=== PATIENT | male | born 1940 | race Caucasian/White ===

== ENCOUNTER 2018-09-11 17:50 | Emergency (ER) | payer MEDICARE, OTHER ==
[~2018-09-11] VITALS: Ht 180.3 cm; Wt 81.6 kg
--- OUTSIDE RECORDS SUMMARY | 2018-09-11 17:53 | XMS REPORT ---
Author Author [facility] Address Unknown Phone Unavailable Care Team Providers Care Window Trimmer Name Role Phone Unavailable Unavailable Payers Payer Name Policy Type Policy Number Effective Date Expiration Date Problems This patient has no known problems. Allergies, Adverse Reactions, Alerts Allergy Name Allergy Type Status Severity Reaction(s) Onset Date Inactive Date Treating Clinician Comments hydrocodone DA Active [place] 2012-02-16 00:00:00 Medications This patient has no known medications.
[2018-09-11] MEDS ORDERED: TETANUS/DIPHTHERIA TOX ADULT 0.5 ML SYR IM ONE (18:15)
[2018-09-11] MEDS ORDERED: TRAMADOL HCL 50 MG TAB PO NR (18:15)
[2018-09-11] MEDS ORDERED: NEOMYCIN/POLYMYX/BACITR OINT 0.9 GM PKT ONE (18:19)
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
[2018-09-11 19:01] VITALS: BP 119/61
== END 2018-09-11 19:05 | disposition home or self-care (01) ==
LOC: ER 17:50
DX: S50.11XA Contusion of right forearm, initial encounter (principal); S50.811A Abrasion of right forearm, initial encounter; V43.52XA Car driver injured in collision with other type car in traffic accident, initial encounter; E03.9 Hypothyroidism, unspecified; Z95.5 Presence of coronary angioplasty implant and graft; I25.2 Old myocardial infarction
CPT/HCPCS: 99283

== ENCOUNTER 2022-01-07 09:16 | Emergency (ER) | payer MEDICARE ==
[~2022-01-07] VITALS: Ht 180.3 cm; Wt 81.6 kg
[2022-01-07] MEDS ORDERED: KETOROLAC TROMETHAMINE 30 MG/ML VIAL IM STA (10:40)
== END 2022-01-07 11:23 | disposition home or self-care (01) ==
LOC: ER 09:28
DX: M25.561 Pain in right knee (principal); M79.661 Pain in right lower leg; E03.9 Hypothyroidism, unspecified; I25.2 Old myocardial infarction; Z95.5 Presence of coronary angioplasty implant and graft
CPT/HCPCS: 93971; 99283; J1885

== ENCOUNTER 2022-08-11 21:24 | Observation (INO) | payer MEDICARE ==
[~2022-08-11] VITALS: Ht 177.8 cm; Wt 81.6 kg
[2022-08-11] MEDS ORDERED: DIGOXIN INJ 0.25 MG/ML 2 ML AMP IV STA (21:32)
[2022-08-11] MEDS ORDERED: ONDANSETRON HCL INJ 2MG/ML 2ML 2 MG/ML VIAL IV PRN (21:45)
[2022-08-11] MEDS ORDERED: DILTIAZEM HCL 5 MG/ML 5 ML VIAL IV STA ×2 (21:47→21:48)
[2022-08-11] MEDS ORDERED: METOPROLOL TARTRATE INJ 1 MG/ML VIAL IV STA (21:48)
[2022-08-11 21:52] LABS: BASOPHILS % 0.3 % (0.0-1.0); HEMATOCRIT 44.5 % (38.2-49.6); HEMOGLOBIN 14.7 g/dL (14.0-18.0); LYMPHOCYTES # (AUTO) 0.9 (1.0-3.2); LYMPHOCYTES % 11.5 % (18.0-39.1); MEAN CORPUSCULAR HEMOGLOBIN 28.4 pg (28-32); MEAN CORPUSCULAR VOLUME 85.9 fL (81-99); MONOCYTES # (AUTO) 0.3 (0.2-0.8); MONOCYTES % 4.2 % (4.4-11.3); NEUTROPHILS # (AUTO) 6.6 (2.1-6.9); NEUTROPHILS % 83.4 % (38.7-80.0); PLATELET COUNT 228 x10e3/uL (140-360); RED BLOOD COUNT 5.18 x10e6/uL (4.3-5.7); RED CELL DISTRIBUTION WIDTH 13.2 % (11.7-14.4)
[2022-08-11 22:05] LABS: ALBUMIN 3.9 g/dL (3.5-5.0); ALBUMIN/GLOBULIN RATIO 1.2 (0.8-2.0); ANION GAP 14.9 mmol/L (8-16); CALCIUM 9.4 mg/dL (8.4-10.2); CREATININE, SERUM 1.27 mg/dL (0.72-1.25); POTASSIUM 3.9 mmol/L (3.5-5.1)
[2022-08-11 22:19] LABS: CREATINE KINASE MB 3.3 ng/mL (0-5.0)
[2022-08-11 22:46] VITALS: PULSE 75; RESP 16; O2SAT 98
[2022-08-11 23:00] VITALS: BP 126/61; PULSE 77; RESP 17; TEMP 97.5; O2SAT 100
[2022-08-11] MEDS: SODIUM CHLORIDE 0.9% 1000ML 1,000 ML IV SCH (23:46)
[2022-08-12 00:25] VITALS: BP 126/61; PULSE 77; RESP 17; TEMP 97.5; O2SAT 100
[2022-08-12 04:45] VITALS: BP 120/66; PULSE 84; RESP 17; TEMP 97.7; O2SAT 100
[2022-08-12 05:01] LABS: BASOPHILS % 0.2 % (0.0-1.0); EOSINOPHILS % 0.1 % (0.0-6.0); HEMATOCRIT 38.1 % (38.2-49.6); HEMOGLOBIN 12.4 g/dL (14.0-18.0); LYMPHOCYTES # (AUTO) 1.4 (1.0-3.2); LYMPHOCYTES % 15.7 % (18.0-39.1); MEAN CORPUSCULAR HEMOGLOBIN 28.2 pg (28-32); MEAN CORPUSCULAR HGB CONC 32.5 g/dL (31-35); MEAN CORPUSCULAR VOLUME 86.8 fL (81-99); MONOCYTES # (AUTO) 0.8 (0.2-0.8); MONOCYTES % 8.3 % (4.4-11.3); NEUTROPHILS # (AUTO) 6.9 (2.1-6.9); NEUTROPHILS % 75.3 % (38.7-80.0); PLATELET COUNT 196 x10e3/uL (140-360); RED BLOOD COUNT 4.39 x10e6/uL (4.3-5.7)
[2022-08-12] MEDS ORDERED: LEVOTHYROXINE75 MCG PO (05:17)
[2022-08-12] MEDS ORDERED: PREDNISONE20 MG PO (05:17)
[2022-08-12] MEDS ORDERED: CLOPIDOGREL75 MG PO (05:17)
[2022-08-12] MEDS ORDERED: ASPIRIN325 MG PO (05:17)
[2022-08-12 05:21] LABS: ALBUMIN/GLOBULIN RATIO 1.2 (0.8-2.0); ANION GAP 9.6 mmol/L (8-16); CALCIUM 8.5 mg/dL (8.4-10.2); CREATININE, SERUM 0.95 mg/dL (0.72-1.25); POTASSIUM 3.6 mmol/L (3.5-5.1)
[2022-08-12 05:53] LABS: CREATINE KINASE MB 2.4 ng/mL (0-5.0)
[2022-08-12] MEDS: SODIUM CHLORIDE 0.9% 1000ML 1,000 ML IV SCH (06:14)
[2022-08-12 08:21] VITALS: BP 131/94; PULSE 81; RESP 19; TEMP 97.8; O2SAT 100
[2022-08-12] MEDS ORDERED: FLOMAX0.4 MG PO (08:32)
[2022-08-12] MEDS ORDERED: EZETIMIBE10 MG PO (08:32)
[2022-08-12 08:35] VITALS: BP 131/94; PULSE 81; RESP 19; TEMP 97.8; O2SAT 100
[2022-08-12] MEDS ORDERED: VITAMIN C1000 MG PO (08:37)
[2022-08-12] MEDS ORDERED: [UNRECOGNIZED DRUG - OTHER] PO (08:37)
[2022-08-12] MEDS ORDERED: MULTIVITAMIN PO (08:37)
[2022-08-12] MEDS ORDERED: COQ1050 MG PO (08:37)
[2022-08-12] MEDS ORDERED: vitamin d3 PO (08:37)
[2022-08-12] MEDS ORDERED: VITAMIN B COMP1 EAC1 PO (08:37)
[2022-08-12] MEDS ORDERED: LYSINE1000 MG PO (08:37)
[2022-08-12] MEDS ORDERED: APIXABAN 5 MG TABLET PO SCH (09:00)
[2022-08-12] MEDS ORDERED: METOPROLOL TARTRATE 25 MG TAB PO SCH (09:00)
[2022-08-12] MEDS ORDERED: CLOPIDOGREL BISULFATE 75 MG TAB PO SCH (09:00)
[2022-08-12] MEDS ORDERED: LEVOTHYROXINE SODIUM 75 MCG TAB PO SCH (09:00)
[2022-08-12 09:12] LABS: THYROID STIMULATING HORMONE 0.159 uIU/mL (0.350-4.940)
[2022-08-12 10:30] VITALS: PULSE 67; RESP 16; O2SAT 99
[2022-08-12] MEDS ORDERED: METOPROLOL SUCC25 MG PO (10:36)
[2022-08-12] MEDS ORDERED: ELIQUIS5 MG PO (10:37)
[2022-08-12 10:56] LABS: CHOL/HDL RATIO 3.9 (3.9-4.7)
[2022-08-12] MEDS ORDERED: AMIODARONE HCL 200 MG TAB PO SCH (12:00)
[2022-08-12] MEDS ORDERED: TAMSULOSIN HCL 0.4 MG CAP PO SCH (17:00)
[2022-08-13] MEDS ORDERED: LEVOTHYROXINE SODIUM 25 MCG TABLET PO SCH (06:00)
[2022-08-13] MEDS ORDERED: METOPROLOL SUCCINATE 25 MG TAB XL PO SCH (09:00)
== END 2022-08-12 11:05 | disposition home or self-care (01) ==
LOC: ER 21:29 → INTOOBSV 21:38 → ERHOLD 21:38 → MED/SURG 23:01
PROVIDERS: ADMIT Internal Medicine; ATTEND Internal Medicine
DX: I48.0 Paroxysmal atrial fibrillation (principal); I48.20 Chronic atrial fibrillation, unspecified; I25.10 Atherosclerotic heart disease of native coronary artery without angina pectoris; E78.00 Pure hypercholesterolemia, unspecified; I10 Essential (primary) hypertension; N40.0 Benign prostatic hyperplasia without lower urinary tract symptoms; E03.9 Hypothyroidism, unspecified; Z88.6 Allergy status to analgesic agent; I25.2 Old myocardial infarction; Z20.822 Contact with and (suspected) exposure to COVID-19; Z95.5 Presence of coronary angioplasty implant and graft
CPT/HCPCS: 36415 ×2; 71045; 80053 ×2; 80061; 82550 ×2; 82553 ×2; 83036; 83690; 83735; 83880; 84443; 84484 ×2; 85025 ×2; 85379; 93005; 93306; 94799 ×2; 99284; G0378 ×2; J1160; J7030 ×2; U0002

== ENCOUNTER 2023-01-22 10:07 | Observation (INO) | payer MEDICARE ==
[~2023-01-22] VITALS: Ht 177.8 cm; Wt 81.6 kg
[~2023-01-22 10:07] MED LIST: ASPIRIN325 MG PO; CLOPIDOGREL75 MG PO; COQ1050 MG PO; ELIQUIS5 MG PO; EZETIMIBE10 MG PO; FLOMAX0.4 MG PO; LEVOTHYROXINE75 MCG PO; LYSINE1000 MG PO; METOPROLOL SUCC25 MG PO; MULTIVITAMIN PO; PREDNISONE20 MG PO; VITAMIN B COMP1 EAC1 PO; VITAMIN C1000 MG PO; [UNRECOGNIZED DRUG - OTHER] PO; vitamin d3 PO
[2023-01-22 10:32] LABS: BASOPHILS % 0.5 % (0.0-1.0); EOSINOPHILS # (AUTO) 0.1 (0.0-0.4); EOSINOPHILS % 0.9 % (0.0-6.0); HEMATOCRIT 38.2 % (38.2-49.6); HEMOGLOBIN 12.9 g/dL (14.0-18.0); LYMPHOCYTES # (AUTO) 1.3 (1.0-3.2); LYMPHOCYTES % 16.1 % (18.0-39.1); MEAN CORPUSCULAR HGB CONC 33.8 g/dL (31-35); MONOCYTES # (AUTO) 0.6 (0.2-0.8); MONOCYTES % 7.3 % (4.4-11.3); NEUTROPHILS # (AUTO) 5.9 (2.1-6.9); NEUTROPHILS % 74.8 % (38.7-80.0); PLATELET COUNT 218 x10e3/uL (140-360); RED CELL DISTRIBUTION WIDTH 12.9 % (11.7-14.4); WHITE BLOOD COUNT 7.82 x10e3/uL (4.8-10.8)
[2023-01-22] MEDS ORDERED: DONNATAL/LIDOCAINE/MAALOX 30 ML SUSP PO STA (11:02)
[2023-01-22 11:05] LABS: ALBUMIN 3.6 g/dL (3.5-5.0); ALBUMIN/GLOBULIN RATIO 1.4 (0.8-2.0); ANION GAP 11.7 mmol/L (8-16); CALCIUM 8.6 mg/dL (8.4-10.2); CREATININE, SERUM 1.12 mg/dL (0.72-1.25); POTASSIUM 3.7 mmol/L (3.5-5.1)
[2023-01-22] MEDS ORDERED: DICYCLOMINE HCL 20 MG/2 ML VIAL IM ONE (11:15)
[2023-01-22] MEDS ORDERED: ASPIRIN 325 MG TAB PO ONE (13:00)
[2023-01-22] MEDS ORDERED: ASPIRIN 81 MG CHEW TAB PO ONE (13:00)
[2023-01-22 14:16] VITALS: PULSE 62; RESP 18; O2SAT 98
[2023-01-22 15:52] VITALS: BP 155/80; PULSE 94; RESP 15; TEMP 97.8; O2SAT 100
[2023-01-22] MEDS ORDERED: AMIODARONE HCL200 MG PO (16:15)
[2023-01-22 20:00] VITALS: BP_SYST 149; BP_SYST 155; BP_DIAS 78; BP_DIAS 80; PULSE 94; PULSE 97; RESP 15; RESP 18; TEMP 97.8; TEMP 98.3; O2SAT 100
[2023-01-23] VITALS (7 sets, daily range): BP systolic 115–158; BP diastolic 54–74; PULSE 65–90; RESP 18; TEMP 97.8–98.5; O2SAT 96–100
[2023-01-23 05:22] LABS: BASOPHILS % 0.4 % (0.0-1.0); EOSINOPHILS # (AUTO) 0.1 (0.0-0.4); EOSINOPHILS % 0.6 % (0.0-6.0); HEMATOCRIT 39.1 % (38.2-49.6); HEMOGLOBIN 12.9 g/dL (14.0-18.0); MEAN CORPUSCULAR HEMOGLOBIN 28.1 pg (28-32); MEAN CORPUSCULAR VOLUME 85.2 fL (81-99); MONOCYTES # (AUTO) 0.9 (0.2-0.8); MONOCYTES % 10.8 % (4.4-11.3); NEUTROPHILS # (AUTO) 5.5 (2.1-6.9); NEUTROPHILS % 64.8 % (38.7-80.0); PLATELET COUNT 200 x10e3/uL (140-360); RED BLOOD COUNT 4.59 x10e6/uL (4.3-5.7); RED CELL DISTRIBUTION WIDTH 12.9 % (11.7-14.4); WHITE BLOOD COUNT 8.49 x10e3/uL (4.8-10.8)
[2023-01-23] MEDS: LEVOTHYROXINE SODIUM 50 MCG TAB PO SCH (06:00)
[2023-01-23 06:54] LABS: ALBUMIN 3.2 g/dL (3.5-5.0); ALBUMIN/GLOBULIN RATIO 1.1 (0.8-2.0); ANION GAP 11.1 mmol/L (8-16); CALCIUM 8.8 mg/dL (8.4-10.2); CREATININE, SERUM 1.17 mg/dL (0.72-1.25); POTASSIUM 4.1 mmol/L (3.5-5.1)
[2023-01-23] MEDS: PANTOPRAZOLE SOD 40 MG TABEC PO SCH ×2 (07:30→09:12)
[2023-01-23] MEDS: AMIODARONE HCL 200 MG TAB PO SCH ×2 (08:24→09:13)
[2023-01-23] MEDS: TAMSULOSIN HCL 0.4 MG CAP PO SCH ×2 (08:24→09:13)
[2023-01-23] MEDS: EZETIMIBE 10 MG TAB PO SCH ×2 (08:24→09:13)
[2023-01-23] MEDS: METOPROLOL SUCCINATE 25 MG TAB XL PO SCH (10:45)
[2023-01-23] MEDS ORDERED: HYDRALAZINE HCL 20 MG/ML VIAL IV PRN (21:00)
[2023-01-23] MEDS ORDERED: ONDANSETRON HCL INJ 2MG/ML 2ML 2 MG/ML VIAL IV PRN (21:00)
[2023-01-24 01:03] VITALS: BP 134/58; PULSE 84; RESP 17; TEMP 98; O2SAT 100
[2023-01-24 04:00] VITALS: BP 134/71; PULSE 70; RESP 17; TEMP 98; O2SAT 98
[2023-01-24] MEDS: LEVOTHYROXINE SODIUM 50 MCG TAB PO SCH (05:58)
[2023-01-24 06:26] LABS: ANION GAP 11.5 mmol/L (8-16); CALCIUM 8.9 mg/dL (8.4-10.2); CREATININE, SERUM 1.14 mg/dL (0.72-1.25); PHOSPHORUS 3.1 MG/DL (2.3-4.7); POTASSIUM 3.5 mmol/L (3.5-5.1)
[2023-01-24 06:40] LABS: FREE T4 (FREE THYROXINE) 1.04 ng/dL (0.8-1.8); THYROID STIMULATING HORMONE 1.66 uIU/mL (0.350-4.940)
[2023-01-24 07:32] VITALS: PULSE 70; RESP 18; O2SAT 97
[2023-01-24] MEDS: METOPROLOL SUCCINATE 25 MG TAB XL PO SCH (08:48)
[2023-01-24] MEDS: PANTOPRAZOLE SOD 40 MG TABEC PO SCH (08:49)
[2023-01-24] MEDS: TAMSULOSIN HCL 0.4 MG CAP PO SCH (08:49)
[2023-01-24] MEDS: EZETIMIBE 10 MG TAB PO SCH (08:49)
[2023-01-24] MEDS: AMIODARONE HCL 200 MG TAB PO SCH (08:49)
[2023-01-24 09:13] VITALS: BP 122/71; PULSE 94; RESP 20; TEMP 97.5; O2SAT 98
[2023-01-24] MEDS ORDERED: D5.45%NS/KCL 20MEQ 1,000 ML IV SCH (10:00)
[2023-01-24 12:36] VITALS: BP 108/59; PULSE 72; RESP 16; TEMP 97.9; O2SAT 97
[2023-01-24] MEDS ORDERED: ONDANSETRON ODT4 MG PO (16:32)
[2023-01-24] MEDS ORDERED: ULTRAM 50MG50 MG PO (16:32)
[2023-01-24 16:46] VITALS: BP 109/81; PULSE 71; RESP 15; TEMP 97.7; O2SAT 100
[2023-01-26] MEDS ORDERED: CLOPIDOGREL75 MG PO (10:43)
[2023-01-26] MEDS ORDERED: ELIQUIS5 MG PO (10:43)
== END 2023-01-24 17:28 | disposition home or self-care (01) ==
LOC: ER 10:35 → ERHOLD 12:56 → MED/SURG3 15:19
PROVIDERS: ADMIT Internal Medicine; ATTEND Internal Medicine
DX: K82.8 Other specified diseases of gallbladder (principal); K80.20 Calculus of gallbladder without cholecystitis without obstruction; R10.13 Epigastric pain; I48.0 Paroxysmal atrial fibrillation; Z79.01 Long term (current) use of anticoagulants; I10 Essential (primary) hypertension; I25.10 Atherosclerotic heart disease of native coronary artery without angina pectoris; I25.2 Old myocardial infarction; Z95.5 Presence of coronary angioplasty implant and graft; N40.0 Benign prostatic hyperplasia without lower urinary tract symptoms; E03.9 Hypothyroidism, unspecified; E78.5 Hyperlipidemia, unspecified; M35.3 Polymyalgia rheumatica; M16.0 Bilateral primary osteoarthritis of hip; M47.812 Spondylosis without myelopathy or radiculopathy, cervical region; M47.816 Spondylosis without myelopathy or radiculopathy, lumbar region; Z11.52 Encounter for screening for COVID-19; Z87.891 Personal history of nicotine dependence; Z85.828 Personal history of other malignant neoplasm of skin; Z79.02 Long term (current) use of antithrombotics/antiplatelets; Z79.899 Other long term (current) drug therapy
CPT/HCPCS: 36415 ×3; 71045; 76705; 78227; 80048; 80053 ×2; 82550 ×3; 83690; 83735; 84100; 84439; 84443; 84484 ×3; 85025 ×2; 93005; 94799 ×3; 99284; A9537; C9113; G0378 ×3; J0500; S0164 ×2; U0002

== ENCOUNTER → 2023-01-27 | Day surgery (SDC) | payer MEDICARE ==
[~2023-01-27] MED LIST changes: +ACETAMINOPHEN 1000 MG/100 ML IV ONE; +AMIODARONE HCL200 MG PO; +BUPIVACAINE HCL 0.5% INJ 30 ML VIAL INJ ONE; +CEFAZOLIN SODIUM 2 GM ONE; +DEXAMETHASONE SOD PHOS INJ 4 MG/ML SDV ONE; +ETOMIDATE 2 MG/ML 10 ML INJ IV ONE; +FAMOTIDINE 20 MG/2 ML VIAL IV ONE; +FENTANYL CITRATE/PF 100MCG/2 ML INJ ONE; +GLYCOPYRROLATE INJ 0.2 MG/ML VIAL ONE; +KETAMINE HCL INJ 50 MG/ML 10 ML VIAL ONE; +LACTATED RINGER'S 1,000 ML ONE; +LIDOCAINE HCL (LTA) 4 ML SOLN ONE; +LIDOCAINE HCL 2% LOCAL INJ 5 ML SDV VIAL INJ ONE; +METOCLOPRAMIDE HCL 10 MG/2ML VIAL ONE; +MIDAZOLAM HCL 2 MG/2 ML VIAL ONE; +NEOSTIGMINE 1 MG/ML 10ML VIAL ONE; +ONDANSETRON HCL INJ 2MG/ML 2ML 2 MG/ML VIAL ONE; +ONDANSETRON ODT4 MG PO; +PROPOFOL IV EMULSION 10 MG/ML 20 ML VIAL ONE; +ROCURONIUM BROMIDE 10 MG/ML 5ML VIAL IV ONE; +SEVOFLURANE INHAL SOLN 250 ML PEN BTL ONE; +ULTRAM 50MG50 MG PO
[2023-01-27 07:45] VITALS: TEMP 97.3
[2023-01-27 08:40] VITALS: BP 170/84; PULSE 72; RESP 17; O2SAT 97
== END | disposition home or self-care (01) ==
LOC: OR 05:35
PROVIDERS: ATTEND Surgery
DX: K80.12 Calculus of gallbladder with acute and chronic cholecystitis without obstruction (principal); I10 Essential (primary) hypertension; I25.10 Atherosclerotic heart disease of native coronary artery without angina pectoris; E78.00 Pure hypercholesterolemia, unspecified; I48.0 Paroxysmal atrial fibrillation; Z79.01 Long term (current) use of anticoagulants; R00.1 Bradycardia, unspecified; K21.9 Gastro-esophageal reflux disease without esophagitis; I44.0 Atrioventricular block, first degree; E03.9 Hypothyroidism, unspecified; M16.0 Bilateral primary osteoarthritis of hip; M26.609 Unspecified temporomandibular joint disorder, unspecified side; Z79.02 Long term (current) use of antithrombotics/antiplatelets; Z79.899 Other long term (current) drug therapy
CPT/HCPCS: 47562; 88304; J0131; J1100; J2001; J2250; J2405; J2704; J2710; J2765; J3010; J7121

== ENCOUNTER 2024-02-02 09:59 | Emergency (ER) | payer MEDICARE ==
[~2024-02-02] VITALS: Ht 177.8 cm; Wt 81.6 kg
[~2024-02-02 09:59] MED LIST changes: -ACETAMINOPHEN 1000 MG/100 ML IV ONE; -BUPIVACAINE HCL 0.5% INJ 30 ML VIAL INJ ONE; -CEFAZOLIN SODIUM 2 GM ONE; -DEXAMETHASONE SOD PHOS INJ 4 MG/ML SDV ONE; -ETOMIDATE 2 MG/ML 10 ML INJ IV ONE; -FAMOTIDINE 20 MG/2 ML VIAL IV ONE; -FENTANYL CITRATE/PF 100MCG/2 ML INJ ONE; -GLYCOPYRROLATE INJ 0.2 MG/ML VIAL ONE; -KETAMINE HCL INJ 50 MG/ML 10 ML VIAL ONE; -LACTATED RINGER'S 1,000 ML ONE; -LIDOCAINE HCL (LTA) 4 ML SOLN ONE; -LIDOCAINE HCL 2% LOCAL INJ 5 ML SDV VIAL INJ ONE; -METOCLOPRAMIDE HCL 10 MG/2ML VIAL ONE; -MIDAZOLAM HCL 2 MG/2 ML VIAL ONE; -NEOSTIGMINE 1 MG/ML 10ML VIAL ONE; -ONDANSETRON HCL INJ 2MG/ML 2ML 2 MG/ML VIAL ONE; -PROPOFOL IV EMULSION 10 MG/ML 20 ML VIAL ONE; -ROCURONIUM BROMIDE 10 MG/ML 5ML VIAL IV ONE; -SEVOFLURANE INHAL SOLN 250 ML PEN BTL ONE
[2024-02-02 10:01] VITALS: PULSE 66; RESP 18; TEMP 98.2; O2SAT 98
[2024-02-02] MEDS ORDERED: DOXYCYCLINE HY100 MG PO (10:17)
[2024-02-02] MEDS ORDERED: TYLENOL325 MG PO (10:17)
== END 2024-02-02 10:25 | disposition home or self-care (01) ==
LOC: FSED 10:01
DX: L03.115 Cellulitis of right lower limb (principal); T63.461A Toxic effect of venom of wasps, accidental (unintentional), initial encounter; Y92.89 Other specified places as the place of occurrence of the external cause
CPT/HCPCS: 99283

== ENCOUNTER 2024-05-13 15:53 | Observation (INO) | payer MEDICARE ==
[~2024-05-13] VITALS: Ht 177.8 cm; Wt 82.6 kg
[~2024-05-13 15:53] MED LIST changes: +DOXYCYCLINE HY100 MG PO; +TYLENOL325 MG PO
[2024-05-13 15:58] VITALS: TEMP 98.2
[2024-05-13 16:30] LABS: BASOPHILS # (AUTO) 0.1 (0.0-0.1); BASOPHILS % 0.4 % (0.0-1.0); HEMATOCRIT 43.8 % (38.2-49.6); HEMOGLOBIN 14.5 g/dL (14.0-18.0); LYMPHOCYTES % 7.2 % (18.0-39.1); MEAN CORPUSCULAR HEMOGLOBIN 28.7 pg (28-32); MEAN CORPUSCULAR HGB CONC 33.1 g/dL (31-35); MEAN CORPUSCULAR VOLUME 86.7 fL (81-99); MONOCYTES # (AUTO) 0.4 (0.2-0.8); MONOCYTES % 3.1 % (4.4-11.3); NEUTROPHILS # (AUTO) 12.5 (2.1-6.9); NEUTROPHILS % 88.4 % (38.7-80.0); PLATELET COUNT 220 x10e3/uL (140-360); RED BLOOD COUNT 5.05 x10e6/uL (4.3-5.7); RED CELL DISTRIBUTION WIDTH 13.7 % (11.7-14.4); WHITE BLOOD COUNT 14.12 x10e3/uL (4.8-10.8)
[2024-05-13] MEDS ORDERED: LIDOCAINE HCL 1% LOCAL INJ 20 ML VIAL ONE (16:48)
[2024-05-13 16:49] LABS: INR 0.89; PROTHROMBIN TIME 12.6 seconds (11.9-14.5)
[2024-05-13 16:50] LABS: PARTIAL THROMBOPLASTIN TIME 32.1 seconds (23.8-35.5)
[2024-05-13 17:00] LABS: ALBUMIN 3.6 g/dL (3.5-5.0); ALBUMIN/GLOBULIN RATIO 1.1 (0.8-2.0); ANION GAP 16.8 mmol/L (8-16); BILIRUBIN,TOTAL 0.4 mg/dL (0.2-1.2); CREATININE, SERUM 1.39 mg/dL (0.72-1.25); POTASSIUM 4.8 mmol/L (3.5-5.1); TOTAL PROTEIN 6.8 g/dL (6.5-8.1)
[2024-05-13 17:05] LABS: TROPONIN I 0.001 ng/mL (0-0.300)
[2024-05-13] MEDS ORDERED: CEFTRIAXONE 1 GM VIAL ONE (18:08)
[2024-05-13] MEDS: SODIUM CHLORIDE 0.9% 1000ML 1,000 ML IV STA (18:18)
[2024-05-13] MEDS ORDERED: ONDANSETRON HCL INJ 2MG/ML 2ML 2 MG/ML VIAL IV PRN (18:30)
[2024-05-13] MEDS ORDERED: NITROGLYCERIN 0.4 MG SUBL SL PRN (18:30)
[2024-05-13 18:48] LABS: BILIRUBIN,URINE NEGATIVE (NEGATIVE); CLARITY,URINE CLEAR (CLEAR); COLOR,URINE YELLOW (YELLOW); GLUCOSE, URINE NEGATIVE (NEGATIVE); KETONES,URINE NEGATIVE (NEGATIVE); LEUKOCYTE ESTERASE ,URINE NEGATIVE (NEGATIVE); NITRITE,URINE NEGATIVE (NEGATIVE); PH,URINE 6 (5 - 7); PROTEIN,URINE DIPSTICK NEGATIVE (NEGATIVE); URINE UROBILINOGEN 0.2 mg/dL (0.2 - 1)
[2024-05-13 19:06] LABS: RBC,URINE 0-5 /HPF (0-5); WBC,URINE (MAN) 0-5 /HPF (0-5)
[2024-05-13 20:12] VITALS: PULSE 82; RESP 20
[2024-05-13] MEDS: SODIUM CHLORIDE 0.9% 1000ML 1,000 ML IV SCH (20:24)
[2024-05-13 22:00] VITALS: BP 141/73; PULSE 85; RESP 16; TEMP 97.5; O2SAT 98
[2024-05-14] VITALS (7 sets, daily range): BP systolic 118–156; BP diastolic 67–87; PULSE 66–122; RESP 16–22; TEMP 97.3–102; O2SAT 95–100
[2024-05-14] MEDS ORDERED: ASPIRIN81 MG PO (05:57)
[2024-05-14 07:40] LABS: BASOPHILS # (AUTO) 0.1 (0.0-0.1); BASOPHILS % 0.5 % (0.0-1.0); EOSINOPHILS # (AUTO) 0.1 (0.0-0.4); EOSINOPHILS % 0.5 % (0.0-6.0); HEMATOCRIT 42.1 % (38.2-49.6); HEMOGLOBIN 13.9 g/dL (14.0-18.0); LYMPHOCYTES # (AUTO) 2.2 (1.0-3.2); LYMPHOCYTES % 23.2 % (18.0-39.1); MEAN CORPUSCULAR HEMOGLOBIN 28.4 pg (28-32); MEAN CORPUSCULAR VOLUME 86.1 fL (81-99); MONOCYTES # (AUTO) 0.9 (0.2-0.8); MONOCYTES % 9.4 % (4.4-11.3); NEUTROPHILS # (AUTO) 6.1 (2.1-6.9); NEUTROPHILS % 65.1 % (38.7-80.0); PLATELET COUNT 183 x10e3/uL (140-360); RED BLOOD COUNT 4.89 x10e6/uL (4.3-5.7); RED CELL DISTRIBUTION WIDTH 13.6 % (11.7-14.4); WHITE BLOOD COUNT 9.37 x10e3/uL (4.8-10.8)
[2024-05-14 07:50] LABS: ALBUMIN 3.1 g/dL (3.5-5.0); ANION GAP 12.8 mmol/L (8-16); BILIRUBIN,TOTAL 0.6 mg/dL (0.2-1.2); CALCIUM 8.8 mg/dL (8.4-10.2); CHOL/HDL RATIO 3.8 (3.9-4.7); CREATININE, SERUM 1.18 mg/dL (0.72-1.25); POTASSIUM 3.8 mmol/L (3.5-5.1); TOTAL PROTEIN 6.1 g/dL (6.5-8.1)
[2024-05-14 07:56] LABS: TROPONIN I 0.009 ng/mL (0-0.300)
[2024-05-14] MEDS: CLOPIDOGREL BISULFATE 75 MG TAB PO SCH (08:27)
[2024-05-14] MEDS ORDERED: ASPIRIN 81 MG ENTERIC COATED PO SCH (09:00)
== END 2024-05-14 13:45 | disposition home or self-care (01) ==
LOC: ER 16:05 → ERHOLD 18:25 → MED/SURG3 20:40
PROVIDERS: ADMIT Internal Medicine; ATTEND Internal Medicine
DX: I95.1 Orthostatic hypotension (principal); I48.20 Chronic atrial fibrillation, unspecified; Z79.01 Long term (current) use of anticoagulants; I10 Essential (primary) hypertension; E78.5 Hyperlipidemia, unspecified; I25.10 Atherosclerotic heart disease of native coronary artery without angina pectoris; Z95.5 Presence of coronary angioplasty implant and graft; E03.9 Hypothyroidism, unspecified
CPT/HCPCS: 36415 ×2; 70450; 71045; 72125; 72192; 80053 ×2; 80061; 81001; 82550 ×2; 83735; 84484 ×2; 85025 ×2; 85610; 85730; 87086; 93005; 99284; G0378 ×2; J0696; J2003; J7030

== ENCOUNTER 2025-01-26 13:23 | Emergency (ER) | payer MEDICARE ==
[~2025-01-26] VITALS: Ht 177.8 cm; Wt 80.4 kg
[~2025-01-26 13:23] MED LIST changes: +ASPIRIN81 MG PO
[2025-01-26 13:50] VITALS: PULSE 82; RESP 20; TEMP 98.1; O2SAT 100
[2025-01-26] MEDS ORDERED: BACITRACIN15 GM TOP (16:35)
== END 2025-01-26 16:40 | disposition home or self-care (01) ==
LOC: FSED 14:01
DX: S86.911A Strain of unspecified muscle(s) and tendon(s) at lower leg level, right leg, initial encounter (principal); R21 Rash and other nonspecific skin eruption; I10 Essential (primary) hypertension; I48.91 Unspecified atrial fibrillation; E03.9 Hypothyroidism, unspecified; E78.5 Hyperlipidemia, unspecified; Z85.828 Personal history of other malignant neoplasm of skin; N40.0 Benign prostatic hyperplasia without lower urinary tract symptoms; Z79.01 Long term (current) use of anticoagulants
CPT/HCPCS: 93976; 99283